=== PATIENT | male | born 1975 | race Hispanic/Latino ===

== ENCOUNTER 2017-02-21 19:11 | Emergency (ER) | payer OTHER ==
[~2017-02-21] VITALS: Ht 182.9 cm; Wt 86.4 kg
[2017-02-21 19:24] VITALS: BP 107/70; PULSE 76; RESP 18; O2SAT 97
--- NOTE | 2017-02-21 20:12 | DRSVH ---
PROCEDURE: X-RAY LEFT HAND, MINIMUM THREE VIEWS ([id number]) INDICATIONS: pain TECHNIQUE: 3 views of the hand(s) acquired. COMPARISON: None. FINDINGS: Bones: There is fracture involving the tuft the fourth distal phalanx with mild displacement. Carpal bones are normally aligned. No suspicious bony lesions. Soft tissues: No suspicious soft tissue calcifications. IMPRESSION: Tuft fracture of the fourth distal phalanx Dictated by: Dakotah Gates M.D. on 02/21/2017 at 20:08 Approved by: Dakotah Gates M.D. on 02/21/2017 at 20:11
--- NOTE | 2017-02-21 20:13 | ED.REPORT ---
HPI-Extremity Problem Upper Date of Service Feb 21, 2017 ED Provider: Tyler Meyers DO Pt is an otherwise healthy 42 year old male who presents to the ED complaining of left 4th finger pain onset prior to arrival. He c/o associated left 5th finger pain. He denies any other symptoms. Pt reports that he was cleaning a machine at work when his fingers accidentally got caught in a chain. Nursing Notes Stated Complaint: POSS BROKEN FINGERS Chief Complaint: Extremity Trauma Nursing Notes Reviewed: Yes General Time Seen by MD: 20:13 Chief Complaint Finger injury right 4, Finger injury right 5 Hx Obtained From: Patient Arrived By: Walk-in Onset Occurred: Just prior to arrival Symptom Duration: Since onset Caused by: Accidental Location: : Finger right 4: Finger right 5 Quality: Painful Severity: Current: Moderate Severity: Maximum: Moderate Recent Healthcare: No recent doctor visit, No recent hospitalization Similar Sx Previous: No Past Medical History Past Medical History Denies Past Surgical History Denies Smoking History Unknown if Ever Smoker Social History Denies Ambulatory Status Independent Review of Systems Constitutional: Denies: Fever Musculoskeletal: Reports: Extremity pain (finger pain, left) Complete sys rev & neg: except as marked. Respiratory: Denies: Non-productive cough, Shortness of breath Physical Exam Initial Vital Signs Vital Signs (First) Date Time Temp Pulse Resp B/P Pulse Ox O2 Delivery O2 Flow Rate FiO2 02/21/17 19:24 36.4 76 18 107/70 97 Room Air Initial VS: Reviewed Head / Eyes: Atraumatic, Normocephalic Neck: Supple, Full range of motion Respiratory: Breath sounds normal, Clear to auscultation, No respiratory distress Cardiovascular: Regular rate & rhythm, Heart sounds normal, Intact distal pulses Abdomen / GI: Soft, Non-tender Lower Extremities: Vascular intact, Neuro intact Skin: Warm, Dry, No cyanosis Neurologic: Alert, Oriented, Nonfocal Psychiatric: Mood/affect normal, Behavior normal General/Constitutional: Awake, Alert Wrist / Hand: Neurologic intact, Vascular intact Ecchymotic 4th and 5th finger of left hand Interpretation & Diagnostics X-Ray Interpretation Xray Interpretation: IMPRESSION: Tuft fracture of the fourth distal phalanx Dictated by: Dakotah Gates M.D. on 02/21/2017 at 20:08 X-Ray Ordered: Hand left Interpretation / Wet Read by: Interpret - Radiologist Re-Eval/Medical Decision Med Decision/Clinical Course Pointing: Aluminum foam splint with finger brayden tape 4-5. Good pain relief. Excellent immobilization. Source of Hx: Old records Re-Evaluation/Progress : Time of Eval: 21:00 Re-Evaluation/Progress Note: Pt rechecked. Informed pt of plan for discharge. Pt understands and agrees with plan for discharge. F/U instructions and RTER warnings given. All questions addressed. Counseled Regarding: Diagnosis, Need for follow-up, When/why to return to ED Discharge & Departure Impression: Primary Impression: Finger fracture Encounter type: initial encounter Fracture type: closed Disposition: Home Discharge Condition All VS Reviewed: Yes Condition: Stable Patient Instructions: Finger Fracture (ED) Additional Instructions: Keep your finger splinted. Do not use your 4th and 5th finger until you are cleared by orthopedics. Call the referral orthopedic tomorrow for a follow up appointment in 7-10 days. Take Motrin 600mg every 8 hours for moderate pain. Take [place] 1-2 every 6 hours as needed for severe pain. Do not drive or drink alcohol or consume acetaminophen while taking [place]. Return to the Emergency Department for any new or worrisome symptoms. Mantenga el dedo enganchado. No utilice wallis dedo 4 y 5 hasta que se limpie con ortopedia. Llame a la ortopedia de referencia maana para jerrod carson de seguimiento en 7-10 d as. [place] Motrin 600mg cada 8 horas para el dolor moderado. [place] 1-2 cada 6 horas segn sea necesario para el dolor linda. No conduzca ni kavitha alcohol ni consuma acetaminofn mientras est tomando [place]. Vuelva al Departamento de Urgencias por cualquier sntoma nuevo o preocupante. Referrals: [facility] Chiki Perez MD Scribe Attestation Portions of this note were transcribed by Ashleigh Meza. I, Dr. Meyers personally performed the history, physical exam and medical decision-making; I reviewed and confirmed the accuracy of the information in the transcribed note. Signed by : Mari Murillo, 02/21/17. copies to: [facility]; Chiki Perez MD, Todd P DO Feb 21, 2017 20:13 Ashleigh Coronado Feb 21, 2017 20:54
[2017-02-21 21:43] VITALS: BP 102/67; PULSE 72; O2SAT 97
== END 2017-02-21 21:44 | disposition home or self-care (01) ==
LOC: SED 19:11
DX: S62.635A Displaced fracture of distal phalanx of left ring finger, initial encounter for closed fracture (principal); W23.0XXA Caught, crushed, jammed, or pinched between moving objects, initial encounter; Y93.89 Activity, other specified; Y92.69 Other specified industrial and construction area as the place of occurrence of the external cause; Y99.0 Civilian activity done for income or pay